=== PATIENT | male | born 1960 | race Two or more races ===

== ENCOUNTER 2017-02-24 21:27 | Emergency (ER) | payer SELFPAY ==
[~2017-02-24] VITALS: Ht 177.8 cm; Wt 80.9 kg
[2017-02-24] MEDS ORDERED: AMLO-512 PO (21:37)
[2017-02-24] MEDS ORDERED: OMEP20 PO (21:37)
[2017-02-24] MEDS ORDERED: TRAM50TA4 PO (21:37)
[2017-02-24 22:23] LABS: BASOPHILS % (AUTO) 1.1 % (0.0-2.0); EOSINOPHILS % (AUTO) 4.9 % (1.0-6.0); HEMATOCRIT 44.5 % (41-53); HEMOGLOBIN 14.9 g/dL (13.5-17.5); LYMPHOCYTES # (AUTO) 1.3 K/uL (1.0-4.8); LYMPHOCYTES % (AUTO) 17.3 % (22.0-44.0); MEAN CORPUSCULAR HEMOGLOBIN 30.9 pg (26.0-34.0); MEAN CORPUSCULAR HGB CONC 33.4 G/dL (31.0-37.0); MEAN CORPUSCULAR VOLUME 92 fL (80-100); MONOCYTES # (AUTO) 0.6 K/uL (0.1-1.0); MONOCYTES % (AUTO) 8.7 % (2.0-9.0); PLATELET COUNT (AUTO) 259 K/uL (150-450); RED BLOOD CELL COUNT(AUTO) 4.81 MIL/uL (4.50-5.90); RED CELL DISTRIBUTION WIDTH 13.6 % (11.5-14.5); WHITE BLOOD COUNT (AUTO) 7.4 K/uL (4.5-11.0)
[2017-02-24] MEDS ORDERED: ONDANSETRON HCL 4 MG/2 ML VIAL IVP ONE (22:30)
[2017-02-24] MEDS ORDERED: MORPHINE SULFATE 4 MG/ML SYRINGE IVP ONE (22:30)
[2017-02-24 22:31] LABS: ANION GAP 10 mmol/L (8-16); CALCIUM, TOTAL 8.8 mg/dL (8.8-10.5); CARBON DIOXIDE 27 mmol/L (22-29); CHLORIDE 102 mmol/L (98-107); CREATININE 0.96 mg/dL (0.60-1.30); GLOMERULAR FILTR. RATE CALC > 60 mL/min (>60); POTASSIUM 3.6 mmol/L (3.5-5.1); SODIUM SERUM 139 mmol/L (136-145); UREA NITROGEN, BLOOD 16 mg/dL (7-18)
[2017-02-24 22:42] LABS: B-TYPE NATRIURETIC PEPTIDE 8 pg/mL (0-100)
[2017-02-24 22:58] LABS: ALANINE AMINOTRANSFERASE 31 U/L (12-78); ALBUMIN 4.2 g/dL (3.4-5.0); ASPARTATE AMINOTRANSFERASE 18 U/L (15-37); BILIRUBIN,TOTAL 0.4 mg/dL (0.1-1.0); CREATINE KINASE MB 0.7 ng/mL (0-5); CREATINE KINASE, TOTAL 184 U/L (39-308); TOTAL PROTEIN, SERUM 7.7 g/dL (6.4-8.2)
[2017-02-24] MEDS ORDERED: ACETAMINOPHEN 1000 MG/ISO-OSM 100 ML IV ONE (23:00)
[2017-02-25 00:15] VITALS: BP 119/69
== END 2017-02-25 01:17 | disposition home or self-care (01) ==
LOC: EMS 21:29
DX: I10 Essential (primary) hypertension (principal); R51 Headache; J32.9 Chronic sinusitis, unspecified; F17.210 Nicotine dependence, cigarettes, uncomplicated; Z71.6 Tobacco abuse counseling
CPT/HCPCS: 70450; 71010; 80053; 82550; 82553; 83690; 83880; 84484; 85025; 93005; 96365; 96375; 99285; 99406; J0131; J2270; J2405

== ENCOUNTER 2022-04-25 12:12 | Emergency (ER) | payer OTHER ==
[~2022-04-25] VITALS: Ht 175.3 cm; Wt 82.3 kg
[~2022-04-25 12:12] MED LIST: AMLO-258 PO; OMEP20 PO; TRAM50TA4 PO
[2022-04-25 12:17] VITALS: BP 144/85
[2022-04-25] MEDS ORDERED: SIMV-260 PO (12:20)
== END 2022-04-25 13:16 | disposition left against medical advice (07) ==
LOC: EMS 12:19
DX: Z53.21 Procedure and treatment not carried out due to patient leaving prior to being seen by health care provider (principal)